=== PATIENT | male | born 1985 | race Caucasian/White ===

== ENCOUNTER 2016-06-10 12:50 | Emergency (ER) | payer MEDICAID ==
[2016-06-10] MEDS ORDERED: LORazepam 2 MG/ML INJ IVP ONE ×2 (14:05→14:42)
[2016-06-10] MEDS ORDERED: NS 1,000 ML IV ONE (14:06)
--- NOTE | 2016-06-10 14:20 | UCPHY ---
H & P Patient Type: Established Chief Complaint Nursing Narrative: Pt tripped and fell last night and got multiple abrasions wounds on face and hands. Initially denied Etoh. Admits to "two beers" prior to fall. Denies LOC . States was dizzy / lightheaded. States woke up today with 10/10 anxiety .took 1/2 Klonopin for this. Time Seen by Provider: 06/10/16 14:05 HPI/ROS: CHIEF COMPLAINT: Evaluation of facial abrasions following mechanical fall, anxiety HISTORY OF PRESENT ILLNESS: The patient presents to the urgent care with complaints of anxiety following alcohol use last night. The patient reportedly was in his parents basement. He reportedly had 2-3 drinks. Some time during the evening he sustained a mechanical fall and sustained abrasions to his face. The patient presents to the urgent care today with complaints of anxiety. The patient has multiple superficial abrasions to his forehead. The patient denies any additional injury. The patient has been ambulatory. The patient denies history of seizure. The patient denies complaints of acute headache. He does have tenderness in the area of his superficial soft tissue lacerations. The patient denies neck pain, chest pain, back pain, abdominal pain or additional acute complaints. REVIEW OF SYSTEMS: A comprehensive 10 point review of systems is otherwise negative aside from elements mentioned in the history of present illness. Source: Patient - Personal History Current Tetanus Diphtheria and Acellular Pertussis (TDAP): Yes Tetanus Vaccine Date: <10 years - Medical/Surgical History Hx Asthma: No Hx Chronic Respiratory Disease: No Hx Diabetes: No Hx Cardiac Disease: No Hx Renal Disease: No Hx Cirrhosis: No Hx Alcoholism: Yes Hx HIV/AIDS: No Hx Splenectomy or Spleen Trauma: No Other PMH: marijuana use. Bipolar, depression, SI attempt 9 years of age. Etoh abuse. Ankle surgery - Family History Significant Family History: No pertinent family hx - Social History Smoking Status: Heavy smoker Alcohol Use: Heavy Drug Use: Marijuana - Physical Exam Exam: General Appearance: Alert, anxious Head: Multiple superficial abrasions noted to the scalp and forehead, there are approximately 4 cm of superficial laceration noted to the right temporal area and another 1 cm laceration noted to the right cheek Eyes: Pupils equal, round, reactive ENT, Mouth: No hemotympanum, no oral trauma Neck: Nontender, trachea midline Respiratory: No chest wall tender, subcutaneous air, lungs clear bilaterally Cardiovascular: Regular rate and rhythm Abdomen: Abdomen is soft and nontender, pelvis stable Skin: No lacerations, No abrasion Back: No midline T/L/S pain Extremities: Nontender, full range of motion Neurological: A&Ox3, normal motor function, normal sensory exam Constitutional: Initial Vital Signs Temperature (C) 36.8 C 06/10/16 13:31 Heart Rate 94 06/10/16 13:31 Respiratory Rate 16 06/10/16 13:31 Blood Pressure 118/76 06/10/16 13:31 O2 Sat (%) 95 06/10/16 13:31 O2 Delivery Mode Room Air Allergies/Adverse Reactions: No Known Allergies Allergy (Verified 06/10/16 13:36) Home Medications: Medication Instructions Recorded Olanzapine [Zyprexa] 20 mg PO BID 04/22/15 Topiramate [Topamax 100MG (*)] 100 mg PO BID 04/22/15 buPROPion XL [Wellbutrin 150mg XL] 300 mg PO DAILY #30 tab 04/26/15 Prazosin HCl [Minipress 1mg (*)] 1 mg PO DAILY 09/12/15 clonazePAM [klonoPIN (*)] 0.5 - 1 mg PO BID PRN #0 tab 09/14/15 MIRTAZAPINE 06/10/16 Methyl Folate 06/10/16 Medical Decision Making Procedures: Procedure #1: Scalp laceration repair. Verbal consent was obtained from the patient. The 4 cm laceration on the right temporal scalp was anesthetized using lidocaine with epinephrine. The wound was scrubbed, draped and explored to its base with a gloved finger. There were no deep structures involved. The wound was repaired with 4-0 Prolene sutures placed in a simple fashion. The wound repair was simple. The procedure was performed by myself. Procedure #2: Laceration repair. Verbal consent was obtained from the patient. The 3 cm laceration on the complex, stellate laceration above the right eyebrow was anesthetized using lidocaine with epinephrine. The wound was scrubbed, draped and explored to its base with a gloved finger. There were no deep structures involved. The wound was repaired with 7 6-0 Prolene sutures. The wound repair was complex given the irregular shape and location. The procedure was performed by myself. ED Course/Re-evaluation: The patient presents to the urgent care with fairly significant anxiety. He is hyperventilating. The patient did receive 1 mg of IV Ativan x2. We applied a topical anesthetic to his face and I anesthetized several superficial lacerations. The patient received 2.5 mg of IV Haldol for ongoing anxiety. I reevaluated the patient at 3:15 p.m. The patient had 3 discrete laceration was repaired by myself without complication. Given the mechanism of the patient 's fall, a CT scan of the head will be ordered to exclude skull fracture or intracranial hemorrhage. If this study is negative, the patient will be discharged home and return for suture removal on his face in 5 days and suture removal in his scalp in 10 days. The patient is noted to be ambulatory in the urgent care, he has no clinical evidence a extremity fracture. The patient is noted to be neurologically intact. The patient did have significant improvement of his anxiety after receiving a small dose of Haldol and Ativan. Differential Diagnosis: Differential diagnosis considered includes anxiety, alcohol intoxication, intracranial hemorrhage, facial bone fracture, laceration - Data Points Medications Given: Discontinued Medications Hydrocodone Bitart/Acetaminophen ([place] 5/325) 1 tab PO EDNOW ONE Stop: 06/10/16 14:43 Last Admin: 06/10/16 14:57 Dose: 1 tab Haloperidol Lactate (Haldol Injection) 2.5 mg IVP EDNOW ONE Stop: 06/10/16 15:01 Last Admin: 06/10/16 15:20 Dose: 2.5 mg Sodium Chloride (Ns) 1,000 mls @ 0 mls/hr IV ONCE ONE PRN Reason: Wide Open Stop: 06/10/16 14:07 Last Admin: 06/10/16 14:00 Dose: 1,000 mls Lorazepam (Ativan Injection) 1 mg IVP EDNOW ONE Stop: 06/10/16 14:06 Last Admin: 06/10/16 14:12 Dose: 1 mg Lorazepam (Ativan Injection) 1 mg IVP EDNOW ONE Stop: 06/10/16 14:43 Last Admin: 06/10/16 14:57 Dose: 1 mg Departure - Departure Clinical Impression: Facial laceration, Bipolar 1 disorder Condition: Good Instructions: Care For Your Stitches (ED), Laceration (ED) Additional Instructions: 1. Please return to the Urgent Care in 5 days for suture removal on your face and 10 days for suture removal in her scalp. 2. Please follow up with [facility] this week to discuss your anxiety. 3. Please return to the ED for severe headache, new pain, vomiting or other concerns. Referrals: ESDRAS GAMBOA,. [Primary Care Provider] - As per Instructions - PQRS PQRS Measurement: Not applicable
[2016-06-10] MEDS ORDERED: HYDROCODONE/APAP 5/325 TAB PO ONE (14:42)
[2016-06-10] MEDS ORDERED: HALOPERIDOL LACT 5 MG/ML INJ IVP ONE (15:00)
[2016-06-10 16:41] VITALS: BP 125/59; PULSE 83; RESP 14; O2SAT 93
[2016-06-10 16:48] VITALS: TEMP 98.2
== END 2016-06-10 16:55 | disposition home or self-care (01) ==
LOC: CED 12:50
PROC: 0HQ1XZZ Repair Face Skin, External Approach (ICD-10-PCS; principal; 2016-06-10)
PROC: 0HQ0XZZ Repair Scalp Skin, External Approach (ICD-10-PCS; principal; 2016-06-10)
DX: S01.01XA Laceration without foreign body of scalp, initial encounter (principal); S01.81XA Laceration without foreign body of other part of head, initial encounter; S02.2XXA Fracture of nasal bones, initial encounter for closed fracture; W01.0XXA Fall on same level from slipping, tripping and stumbling without subsequent striking against object, initial encounter; Y92.018 Other place in single-family (private) house as the place of occurrence of the external cause; Y99.8 Other external cause status; F31.9 Bipolar disorder, unspecified; F41.9 Anxiety disorder, unspecified; F10.10 Alcohol abuse, uncomplicated; F17.200 Nicotine dependence, unspecified, uncomplicated
CPT/HCPCS: 70450-PO; 96361-PO; 96374-PO; 96375-PO; 96376-PO; G0463-PO